=== PATIENT | male | born 1945 | race Caucasian/White ===

== ENCOUNTER 2021-07-24 09:27 | Emergency (ER) | payer MEDICARE, OTHER, SELFPAY ==
[2021-07-24] VITALS (25 sets, daily range): BP systolic 117–164; BP diastolic 70–88; PULSE 78–94; RESP 13–25; O2SAT 92–97
--- NOTE | ~2021-07-24 | CT_ITS ---
EXAMINATION: CT cervical spine wo con DATE: 07/24/2021 11:46 INDICATION: Numbness and tingling in both arms. TECHNIQUE: Computed tomography (CT) of the cervical spine was performed without intravenous contrast. Automated exposure control and iterative reconstruction technique were employed. The dose-length pro duct was 430.96 mGy-cm. COMPARISON: None FINDINGS: There is 11 degrees dextroscoliosis of cervical spine. There is 2 mm anterolisthesis of C3 on C4 and 3 mm anterolisthesis of C4 on C5. There are changes of anterior fusion procedure at C5-C6 w ith interbody bone graft without bridging bone. There are changes of anterior fusion procedure at C6- C7 with healed interbody bone graft. There is mildly decreased disc height at C3-C4 and severely decr eased disc height at C4-C5 and C7-T1. The following disc levels are specifically discussed: C2-C3: There is mild bilateral uncovertebral joint osteoarthritis. There is severe right and moderate left facet joint osteoarthritis. There is mild bilateral neural foraminal stenosis. There is no cent ral canal stenosis. C3-C4: There is a large central extrusion. There is moderate right and severe left uncovertebral join t osteoarthritis. There is severe bilateral facet joint osteoarthritis. There is mild right and moder ate left neural foraminal stenosis. There is severe central canal stenosis. C4-C5: There is a large central extrusion. There is severe bilateral uncovertebral joint osteoarthrit is. There is severe bilateral facet joint osteoarthritis. There is moderate bilateral neural foramina l stenosis. There is severe central canal stenosis. C5-C6: There is severe bilateral uncovertebral joint osteoarthritis. There is mild right and moderate left facet joint osteoarthritis. There is moderate right and mild left neural foraminal stenosis. Th ere is mild central canal stenosis. C6-C7: There is moderate bilateral uncovertebral joint hypertrophy. There is mild bilateral facet brittni nt hypertrophy. There is mild bilateral neural foraminal stenosis. There is no central canal stenosis . C7-T1: There is severe bilateral uncovertebral joint osteoarthritis. There is severe bilateral facet joint osteoarthritis. There is moderate right and mild left neural foraminal stenosis. There is mild central canal stenosis. IMPRESSION: 1. Severe cervical spondylosis. Of note, large extrusions at C3-C4 and C4-C5 causes severe central ca nal stenosis. 2. Anterior fusion procedure at C5-C6 without bridging bone. Healed anterior fusion procedure at C6-C 7. Reviewed, dictated and finalized at location A. [facility]NER IMPRESSION: 1. Severe cervical spondylosis. Of note, large extrusions at C3-C4 and C4-C5 ca uses severe central canal stenosis. 2. Anterior fusion procedure at C5-C6 without bridging bone. Healed anterior fu connie procedure at C6-C7.
--- NOTE | ~2021-07-24 | XR_ITS ---
EXAMINATION: XR chest 1V 07/24/2021 11:47 INDICATION: Acute chest pain PROCEDURE: AP view of the chest COMPARISON: No prior studies for comparison. FINDINGS: The lungs are clear. The cardiomediastinal silhouette is within normal limits. There are no pleural effusions. There is no pneumothorax suspected. IMPRESSION: 1: NO ACUTE CARDIOPULMONARY DISEASE. Reviewed, dictated and finalized at location A. E LAYER
--- NOTE | 2021-07-24 10:15 | ED.EXTPRO ---
HPI - Extremity Problem General Chief complaint: Extremity Problem,Nontraumatic Stated complaint: numbness in extremities Time Seen by Provider: 07/24/21 10:14 Source: patient and family Mode of arrival: ambulatory Limitations: no limitations History of Present Illness HPI Narrative: Patient 75 years old white male came to the ED with his from home complaining of numbness , tingling and weakness of the upper extremities down to the hands mainly left hand Patient started having numbness left hand years ago, few years after having cervical fusion 2002. And gradually getting worse. Patient started having tingling numbness plus some weakness of the right hand, started 2 months ago and gradually going up to the arm and getting worse. Patient also complaining of numbness of the left chest and abdomen started 2 days ago. Patient denies any recent trauma or neck pain. Patient was seen by his family physician 1 week ago and is scheduled for neurological evaluation for carpal tunnel. Patient denies any fever, chills, nausea, vomiting, chest pain, shortness of breath, headache. Patient denies any tingling, numbness or weakness of the lower extremities. patient denies bowel dysfunction, bladder dysfunction, altered sensation, focal lower extremity weakness, or saddle numbness, Related Data Allergies Allergy/AdvReac Type Severity Reaction Status Date / Time Sulfa (Sulfonamide Allergy Unknown Unknown Verified 07/24/21 09:41 Antibiotics) Review of Systems Review of Systems: CONSTITUTIONAL: Denies fever, chills, or sweats. EYES: Denies visual changes, redness, or discharge. ENT: Denies rhinorrhea, congestion, sore throat, or otalgia. CARDIOVASCULAR: Denies chest pain, palpitations, or edema. RESPIRATORY: Denies cough or dyspnea. GASTROINTESTINAL: Denies abdominal pain, nausea, vomiting, or diarrhea. GENITOURINARY: Denies dysuria or hematuria. SKIN: Denies rash or itching. MUSCULOSKELETAL: Denies back pain, joint pain, or myalgia. NEUROLOGIC: Denies headache, numbness, or weakness. PSYCHIATRIC: Denies anxiety or depression. Exam Narrative: General appearance: Well-developed, well-nourished Skin: Normal color Head: Normocephalic, nontraumatic Eyes: Clear conjunctiva ENT: Oropharynx normal, ears normal, nose normal Neck: Supple, nontender Chest and respiratory: Airway patent, no respiratory distress, no accessory muscle use Heart: Regular rate/rhythm Abdomen: Soft, nontender, no organomegaly, quiet bowel sounds Vascular: Normal peripheral pulses, normal capillary refill. Musculoskeletal: Normal range of motion, nontender back Neurologic: Alert and oriented ?3, motor strength is 4 out of 5 of the upper extremity bilaterally. Course Course Emergency Course: Stable Consultations Consultation #1: Dr. Escobedo He is going to order MRI of the cervical spine as outpatient. Date: 07/24/21 Time: 11:24 Consultation #2: DR VELASCO, orthopedic at [facility], is telling me that as long as patient does not have cauda equina symptoms or numbness or weakness of the lower extremity, can come to see her as soon as possible next week, patient to be scheduled for the MRI of the cervical spine. And if I can get MRI in my facility right now would be much better, to not to delay the process of care. I am not able to order MRI in my facility at this time because I was told that the patient does not have acute condition at this time and MRI would not be appropriate.PER our chief nurse Mahsa. My plan to call Dr. Escobedo to expedite the process of getting MRI as soon as possible before going to see the orthopedic at [facility]. Date: 07/24/21 Time: 12:43 Vital Signs V
--- NOTE | 2021-07-24 11:09 | ECG_ITS ---
Measurements Intervals [place] Rate: 82 P: 42 KS: 174 QRS: 14 QRSD: 105 T: 40 QT: 356 QTc: 416 Interpretive Statements SINUS RHYTHM BASELINE ARTIFACT- I, II, III, AVR, AVL, AVF, V1-V6 NORMAL ECG Electronically Signed On 07-24-2021 12:53:48 [employer] by Stanton Yarbrough D.O.
[2021-07-24 11:35] LABS: Basophils Percent Auto 0.3 % (0.2-1.2); Eosinophils Absolute Auto 0.1 K/mm3 (0-0.3); Eosinophils Percent Auto 0.5 % (0-4.4); Hematocrit 41.2 % (42.0-52.0); Immature Granulocyte Absolute 0.03 K/mm3 (0.00-0.031); Immature Granulocyte Percent A 0.3 % (0-0.5); Lymphocytes Absolute Auto 1.29 K/mm3 (0.9-3.2); Lymphocytes Percent Auto 12.2 % (18.3-44.2); Mean Corpuscular Hemoglobin 33.1 pg (26-34); Mean Corpuscular Volume 97.4 fl (80-100); Mean Platelet Volume 9.3 fl (7.4-10.4); Monocytes Absolute Auto 0.5 K/mm3 (0.1-0.6); Monocytes Percent Auto 4.7 % (2.6-8.5); Neutrophils Absolute Auto 8.7 K/mm3 (1.3-6.7); Platelet Count Result 241 k/mm3 (150-375); Red Blood Count 4.23 M/mm3 (4.6-6.20); Red Cell Distribution Width 13.2 % (11.5-14.5); White Blood Count 10.6 K/mm3 (4.5-10.0)
[2021-07-24] MEDS: ASPIRIN 81 MG CHEWABLE TABLET 324 MG PO (11:48)
[2021-07-24 11:50] LABS: Alanine Aminotransferase 22 U/L (4-50); Albumin Level 4.6 g/dL (3.5-5.1); Alkaline Phosphatase 64 U/L (38-126); Anion Gap 9 mmol/L (8-16); Aspartate Amino Transferase 30 U/L (17-59); Bilirubin,Total 1.2 mg/dL (0.2-1.3); Blood Urea Nitrogen 13 mg/dL (9-20); Carbon Dioxide 26 mmol/L (22-30); Chloride 103 mmol/L (98-107); Estimated CRCL calculation 83 ml/min; Estimated Glomerular Filt Rate > 60; Glucose 110 mg/dL (65-110); Lipase 70 U/L (23-300); Potassium 4.2 mmol/L (3.4-5.0); Sodium 138 mmol/L (137-145)
[2021-07-24 12:02] LABS: Troponin I < 0.012 ng/mL (0.000-0.034)
--- NOTE | 2021-07-24 12:23 | PC.NURSE ---
pt images pushed to slu
== END 2021-07-24 13:20 | disposition home or self-care (01) ==
PROVIDERS: Emergency Provider Emergency Medicine; PCP Family Medicine Adolescent Medicine
DX: M47.22 Other spondylosis with radiculopathy, cervical region (principal); M48.02 Spinal stenosis, cervical region; Z98.1 Arthrodesis status
CPT/HCPCS: 36415; 71045; 72125; 80053; 83690; 84484; 85025; 93005; 99284; A9270

== ENCOUNTER 2021-07-25 07:59 | Outpatient (CLI) | payer MEDICARE, OTHER, SELFPAY ==
--- NOTE | ~2021-07-25 | MR_ITS ---
EXAMINATION: MR cervical spine wo con DATE: 07/25/2021 09:08 INDICATION: Numbness and weakness. TECHNIQUE: Magnetic resonance imaging (MRI) of the cervical spine was performed without intravenous c ontrast. Sequences included sagittal T2-weighted FSE, sagittal STIR FSE, sagittal T1-weighted FSE, ax ial MERGE, and axial T2-weighted FSE. COMPARISON: CT cervical spine 07/24/2021 FINDINGS: There is 7 degrees dextrocurvature of cervical spine. There is 2 mm anterolisthesis of C4 o n C5. There are changes of anterior fusion procedures from C5 to C7 with interbody bone graft. There is solid bony fusion at C6-C7, but not at C5-C6. There is severely decreased disc height at C4-C5 and C7-T1. There is increased T2-weighted signal intensity in the spinal cord at C3-C4 and C4-C5. The fo llowing disc levels are specifically discussed: C2-C3: The disc does not extend beyond the endplate margin. There is no uncovertebral joint osteoarth ritis. There is severe bilateral facet joint osteoarthritis. There is mild bilateral neural foraminal stenosis. There is no central canal stenosis. C3-C4: There is a large central extrusion. There is moderate right and severe left uncovertebral join t osteoarthritis. There is severe bilateral facet joint osteoarthritis. There is mild right and moder ate left neural foraminal stenosis. There is severe central canal stenosis with ventral and dorsal in dentation of the spinal cord. C4-C5: There is a central extrusion. There is severe bilateral uncovertebral joint osteoarthritis. Th ere is severe bilateral facet joint osteoarthritis. There is moderate bilateral neural foraminal sten osis. There is severe central canal stenosis with ventral and dorsal indentation of the spinal cord. C5-C6: There is severe bilateral uncovertebral joint hypertrophy. There is mild right and moderate le ft facet joint osteoarthritis. There is moderate right and mild left neural foraminal stenosis. There is no central canal stenosis. C6-C7: There is severe bilateral uncovertebral joint hypertrophy. There is mild bilateral facet joint osteoarthritis. There is mild bilateral neural foraminal stenosis. There is no central canal stenosi s. C7-T1: The disc is bulging. There is severe bilateral uncovertebral joint osteoarthritis. There is se bill bilateral facet joint osteoarthritis. There is moderate right and mild left neural foraminal jake nosis. There is mild central canal stenosis. IMPRESSION: 1. 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 2. Severe cervical spondylosis. 3. Anterior fusion procedure at C5-C6 without bridging bone. Anterior fusion procedure at C6-C7 with healed interbody bone. Reviewed, dictated and finalized at location A. [employer] IMPRESSION: 1. 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 2. Severe cervical spondylosis. 3. Anterior fusion procedure at C5-C6 without bridging bone. Anterior fusion pr ocedure at C6-C7 with healed interbody bone.
== END 2021-07-25 08:00 | disposition home or self-care (01) ==
PROVIDERS: PCP Family Medicine Adolescent Medicine; Visit Provider Family Medicine Adolescent Medicine
DX: M47.813 Spondylosis without myelopathy or radiculopathy, cervicothoracic region (principal); R20.0 Anesthesia of skin; R53.1 Weakness; M48.03 Spinal stenosis, cervicothoracic region; Z98.1 Arthrodesis status; G95.89 Other specified diseases of spinal cord
CPT/HCPCS: 72141

== ENCOUNTER 2021-09-18 08:41 | Outpatient (CLI) | payer MEDICARE, OTHER, SELFPAY ==
--- NOTE | 2021-09-18 11:00 | NEURO_ITS ---
Impression: # Complains of numbness in hands. Status post cervical fusion. # Bilateral moderate Carpal Tunnel Syndrome. # No ulnar neuropathy. # Needle/EMG exam not requested. Nerve Conduction Studies Anti Sensory Summary Table Stim Site NR Peak (ms) P-T Amp (?V) Site1 Site2 Delta-P (ms) Dist (cm) Prabhakar (m/s) Left Median Anti Sensory (2-3nd Digit) Wrist 5.4 15.2 Wrist 2-3nd Digit 5.4 14.0 26 Wrist 5.4 9.4 Wrist 2-3nd Digit 5.4 14.0 26 Right Median Anti Sensory (2-3nd Digit) Wrist 4.1 11.9 Wrist 2-3nd Digit 4.1 14.0 34 Wrist 4.2 5.5 Wrist 2-3nd Digit 4.1 14.0 34 Left Radial Anti Sensory (Base 1st Digit) Wrist 2.5 31.7 Wrist Base 1st Digit 2.5 0.0 Right Radial Anti Sensory (Base 1st Digit) Wrist 2.7 10.0 Wrist Base 1st Digit 2.7 0.0 Left Ulnar Anti Sensory (5th Digit) Wrist 3.2 18.4 Wrist 5th Digit 3.2 14.0 44 Right Ulnar Anti Sensory (5th Digit) Wrist 3.1 20.0 Wrist 5th Digit 3.1 14.0 45 Motor Summary Table Stim Site NR Onset (ms) O-P Amp (mV) Site1 Site2 Delta-0 (ms) Dist (cm) Prabhakar (m/s) Left Median Motor (Abd Poll Brev) Wrist 6.2 1.0 Elbow Wrist 5.9 30.0 51 Elbow 12.1 1.2 Right Median Motor (Abd Poll Brev) Wrist 6.6 0.8 Elbow Wrist 6.3 28.0 44 Elbow 12.9 0.9 Left Ulnar Motor (Abd Dig Minimi) Wrist 2.8 3.5 A Elbow Wrist 6.0 31.0 52 A Elbow 8.8 3.5 Right Ulnar Motor (Abd Dig Minimi) Wrist 3.1 6.3 A Elbow Wrist 6.3 32.0 51 A Elbow 9.4 4.9 F Wave Studies NR F-Lat (ms) L-R F-Lat (ms) Left Median (Mrkrs) (Abd Poll Brev) 33.05 0.41 Right Median (Mrkrs) (Abd Poll Brev) 33.46 0.41 Left Ulnar (Mrkrs) (Abd Dig Min) 30.79 0.99 Right Ulnar (Mrkrs) (Abd Dig Min) 29.80 0.99 MTDD
== END 2021-09-18 08:42 | disposition home or self-care (01) ==
PROVIDERS: PCP Family Medicine Adolescent Medicine; Visit Provider Family Medicine Adolescent Medicine
DX: R20.0 Anesthesia of skin (principal); R53.1 Weakness; G56.03 Carpal tunnel syndrome, bilateral upper limbs
CPT/HCPCS: 95911

== ENCOUNTER 2021-11-09 02:09 | Day surgery (SDC) | payer MEDICARE, OTHER, SELFPAY ==
[2021-10-30 13:01] VITALS: BMI 28.3
--- NOTE | 2021-11-02 10:21 | PC.NURSE ---
Report to the Outpatient Waiting Room, entrance under the green pavilion located off [facility], at time _1045 on date __11/09/21 . OR Time: __1245 . - You and your visitor will be asked a series of questions to screen for COVID 19 for your protection. - A mask is required within the hospital. Preoperative COVID Testing Requirements: No COVID Test needed if: (proof is required; if not received patient will have Rapid Test prior to entry) - Patient has received COVID Vaccine at least 14 days prior to procedure date or - Patient has positive COVID test result within last 90 days of surgery date. COVID Test needed if above criteria is not met If not COVID vaccinated a COVID test must be conducted within 72 hours of surgery and patient is asked to isolate self from time of testing until procedure. You will go to the [facility] for your COVID testing. The [facility] site is located at the corner of [address] [facility]. You will only be called if COVID results are positive and your surgeon may reschedule your elective surgery date. Patients may have clear liquids (water, carbonated beverages, clear teas, apple juice) until 3 hours prior to surgery with a maximum of 20 ounces. - No food from midnight until time of surgery - Infants may have breast milk until 4 hours before surgery, formula 6 hours prior to surgery. - Children will be allowed to drink immediately following surgery. If applicable, please bring a bottle or sippy cup to assist with drinking. Juice, water, soda, and popsicles are readily available. For infants on formula, please bring formula the day of surgery. Pacifiers are allowed. Take the following medications with a SIP of water the morning of surgery: ___NONE Medications to discontinue per physician ___ALL VITAMINS 3 DAYS PRE OP Date to take last dose 11/05/21 Please no make-up, nail russian, hairspray, perfume, deodorant, or body powder the day of surgery. No jewelry (including any body piercings) or valuables the day of surgery, leave them at home. Please take a shower or bath the night before, or the morning of, surgery with an antibacterial soap. Wear comfortable, loose fitting clothing. Children are encouraged to wear pajamas. - Jewelry must be removed prior to entering the operating room. Rings and piercings that are not removed may be cut off. - The hospital will not accept responsibility for valuables. - Please leave all valuables, including medications, at home the day of surgery. If you are going home after surgery, a licensed fast food delivery driver must drive you home. - NO public transportation without another adult. - We recommend that an adult stay with you for 24 hours following discharge. - We also recommend that you do not drive, make important decision, drink alcoholic beverages, or take any drugs that were not prescribed by your health care provider for at least 24 hours after your discharge time. For Pediatric surgeries, we recommend two adults accompany the child home (only one inside the building at this time). One visitor will be allowed to accompany the patient into the hospital. Patients visitor will be instructed to remain with patient at all times or leave the building. We will allow the visitor to come back to the postoperative area when patient is ready. Follow any additional instructions given to you from your surgeon. Telephone instructions given to __PATIENT and asked if any additional questions and then verbalized understanding. Patient advised to call surgeon office or pre surgery nurse liaison [phone] if any additional questions.
--- NOTE | 2021-11-09 07:13 | WPDHPUPDATE1 ---
History and Physical Update Update Date/Time: 11/09/21 07:13 History and Physical has been reviewed, including an updated exam of the patient. There are NO changes in the patient's condition. Risks, benefits, and alternatives have been discussed and questions answered. Patient agrees to proceed with procedure.
--- NOTE | 2021-11-09 07:14 | WPDHPUPDATE1 ---
History and Physical Update Update Date/Time: 11/09/21 07:14 History and Physical has been reviewed, including an updated exam of the patient. There are NO changes in the patient's condition. Risks, benefits, and alternatives have been discussed and questions answered. Patient agrees to proceed with procedure.
[2021-11-09 07:22] VITALS: BP 139/74; PULSE 90; RESP 18; TEMP 36.3; O2SAT 98
--- NOTE | 2021-11-09 07:43 | WPDANESEPPF ---
Anes - Initial Pre Proc Eval Procedure: Operation Date: 11/09/21 09:15 Proposed Procedures p Right Open Carpal Tunnel Release - Dustin Proctor MD s Right Ulnar Neuroplasty - Dustin Proctor MD Date/Time: 11/09/21 07:43 Surgeon: Dustin Proctor MD Pre Op Diagnosis: right carpal & cubital tunnel syndrome Patient Data Age: 76 Gender: M Height: 1.8 m Weight: 89.6 kg Allergies Allergy/AdvReac Type Severity Reaction Status Date / Time Sulfa (Sulfonamide Allergy Unknown Unknown Verified 10/30/21 12:44 Antibiotics) Home Medications Medication Instructions Recorded Confirmed Type cholecalciferol (vitamin D3) 25 mcg PO HS 10/30/21 10/30/21 History lisinopril 40 mg PO HS 10/30/21 10/30/21 History multivit with [id number] [One 1 tablet PO DAILY 10/30/21 10/30/21 History Daily For Men] pravastatin 20 mg PO HS 10/30/21 10/30/21 History Patient hx anesthesia problems: none Family hx anesthesia problems: none Results Review: All pre-operative results and documents have been reviewed as part of the pre-operative evaluation. [facility] Past Medical History Medical History (Updated 11/09/21 @ 07:44 by Mark Andrea MD) HTN (hypertension) Hyperlipidemia Overweight Surgical History Surgical History (Updated 11/09/21 @ 07:45 by Mark Andrea MD) H/O arthroscopic knee surgery H/O cervical spine surgery Social History Social History Smoking packs per day: 1 Smoking cigarettes per day: 20.0 Years smoked: 30 Smoking pack-years: 30.00 Smoking status: Former smoker Tobacco type: cigarettes Smoking end date: 08/05/02 Living arrangements: with family Spiritual care concerns: No Anes - Eval Final PreProcedure Day of Procedure 11/09/21 07:43 Patient weight: overweight Heart: regular rate and rhythm Lungs: clear to auscultation Airway: Mallampati scale Neurological: alert and oriented Last oral intake: >/= 8 hours ASA classification: III Emergent: no Anesthetic plan: proceed Anesthesia type and monitoring: general GIVS and standard monitoring Results Review: All pre-operative results and documents have been reviewed as part of the pre-operative evaluation. Informed Consent: The patient's anesthetic plan and its attendant risks and benefits were discussed with the patient/family/POA. Questions were solicited and answers provided to the satisfaction of the patient/family/POA.
[2021-11-09] MEDS: LACTATED RINGERS 1,000 ML 30 ML IV CONT ×2 (07:47→09:44)
[2021-11-09] MEDS: LIDO 1%/EPINEPHRINE 1:100,000 50 ML VIAL 30 ML INFILTRATE (09:33)
[2021-11-09 09:44] VITALS: BP 111/69; PULSE 85; RESP 15; O2SAT 94
--- NOTE | 2021-11-09 09:54 | P.OP_ITS ---
Procedure Note - Detailed Date of Procedure 11/09/21 Pre-op Diagnosis right carpal & cubital tunnel syndrome Post-op Diagnosis Same Procedure Performed Right open carpal tunnel release and right ulnar neuroplasty at the elbow Surgeon Dustin Proctor MD [employer] [facility] Description of Procedure The right carpal tunnel and cubital tunnel areas were marked on the patient holding area. He was taken to the operating room placed supine the operating table. He was given IV sedation and the right upper extremity was prepped draped usual fashion. A time-out was held confirmed. Extremity was exsanguinated with an Mario wrap tourniquet inflated 250 mmHg. The 2 operative sites were infiltrated with 1% lidocaine with epinephrine. The incision in the palm was made 1st with a incision as marked. Blunt dissection revealed the palmar aponeurosis. That and the transverse carpal ligament were incised with a 15. Blade. Under 3 point retraction the canal was opened distally and proximally for complete release. There was no unusual anatomy noted. The skin was closed with interrupted 4-0 nylon suture. Attention was turned to the right cubital tunnel area elbow was flexed and supported on folded towels. The incision was made as marked and dissection was carried through the subcutaneous tissue to the medial epicondyle. The ulnar nerve was identified just proximal and distal to that. The fascia was opened over that and it was carefully dissected distally under Lane's ligament which was divided and into the of flexor muscle mass. The area of most compression. Be at or distal to Lane's ligament in her seemed compress there as it entered the flexor muscles under the fascia. The nerve was released throughout at least an 8 cm area it did not sublux. Bleeding points were electrocoagulated. The wound was closed with multiple intradermal 4-0 Monocryl sutures and glue. A bulky bandage was applied at both sites the tourniquet was released and he was discharged from the operating room stable condition. He has a prescription for hydrocodone 5/325 7. Estimated Blood Loss 3 Drains No Packing No Pathology None sent Complications No immediate complications Condition Stable Disposition Same day
[2021-11-09 10:14] VITALS: BP 114/71; PULSE 74; RESP 15
[2021-11-09 10:44] VITALS: BP 118/69; PULSE 65; RESP 15
== END 2021-11-09 11:00 | disposition home or self-care (01) ==
PROVIDERS: PCP Family Medicine Adolescent Medicine; Visit Provider Plastic Surgery
PROC: (CPT 64721; principal; 2021-11-09 09:15)
PROC: (CPT 64721; 2021-11-09 09:15)
DX: G56.01 Carpal tunnel syndrome, right upper limb (principal); G56.21 Lesion of ulnar nerve, right upper limb; I10 Essential (primary) hypertension; E78.5 Hyperlipidemia, unspecified; Z87.891 Personal history of nicotine dependence
CPT/HCPCS: 64721; 64718; A9270; J2405; J2704; J3010; J7120

== ENCOUNTER 2021-11-30 02:20 | Day surgery (SDC) | payer MEDICARE, OTHER, SELFPAY ==
[2021-11-24 15:15] VITALS: BMI 27.8
--- NOTE | 2021-11-24 15:19 | PC.NURSE ---
Report to the Outpatient Waiting Room, entrance under the green pavilion located off [facility], at time 1100 on date ____11/30/21___. OR Time: ___1300 . - You and your visitor will be asked a series of questions to screen for COVID 19 for your protection. - A mask is required within the hospital. Preoperative COVID Testing Requirements: No COVID Test needed if: (proof is required; if not received patient will have Rapid Test prior to entry) - Patient has received COVID Vaccine at least 14 days prior to procedure date or - Patient has positive COVID test result within last 90 days of surgery date. COVID Test needed if above criteria is not met If not COVID vaccinated a COVID test must be conducted within 72 hours of surgery and patient is asked to isolate self from time of testing until procedure. You will go to the [facility] for your COVID testing. The [facility] is located at the corner of [address] [facility]. You will only be called if COVID results are positive and your surgeon may reschedule your elective surgery date. Patients may have clear liquids (water, carbonated beverages, clear teas, apple juice) until 3 hours prior to surgery with a maximum of 20 ounces. - No food from midnight until time of surgery - Infants may have breast milk until 4 hours before surgery, formula 6 hours prior to surgery. - Children will be allowed to drink immediately following surgery. If applicable, please bring a bottle or sippy cup to assist with drinking. Juice, water, soda, and popsicles are readily available. For infants on formula, please bring formula the day of surgery. Pacifiers are allowed. Take the following medications with a SIP of water the morning of surgery: ____NONE Medications to discontinue per physician _ALL VITAMINS AND SUPPLEMENTS 3 DAYS PRE OP Date to take last dose___11/26/21 Please no make-up, nail romanian, hairspray, perfume, deodorant, or body powder the day of surgery. No jewelry (including any body piercings) or valuables the day of surgery, leave them at home. Please take a shower or bath the night before, or the morning of, surgery with an antibacterial soap. Wear comfortable, loose fitting clothing. Children are encouraged to wear pajamas. - Jewelry must be removed prior to entering the operating room. Rings and piercings that are not removed may be cut off. - The hospital will not accept responsibility for valuables. - Please leave all valuables, including medications, at home the day of surgery. If you are going home after surgery, a licensed escort car driver must drive you home. - NO public transportation without another adult. - We recommend that an adult stay with you for 24 hours following discharge. - We also recommend that you do not drive, make important decision, drink alcoholic beverages, or take any drugs that were not prescribed by your health care provider for at least 24 hours after your discharge time. For Pediatric surgeries, we recommend two adults accompany the child home (only one inside the building at this time). One visitor will be allowed to accompany the patient into the hospital. Patients visitor will be instructed to remain with patient at all times or leave the building. We will allow the visitor to come back to the postoperative area when patient is ready. Follow any additional instructions given to you from your surgeon. Telephone instructions given to ____PATIENT and asked if any additional questions and then verbalized understanding. Patient advised to call surgeon office or pre surgery nurse liaison [phone] if any additional questions.
--- NOTE | 2021-11-29 08:37 | WPDANESEPPF ---
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 <Srinath Jain MD - Last Filed: 11/30/21 13:52> Patient Data Age: 76 Gender: M Height: 1.8 m Weight: 90.75 kg <Srinath Jain MD - Last Filed: 11/30/21 13:52> Allergies Allergy/AdvReac Type Severity Reaction Status Date / Time Sulfa (Sulfonamide Allergy Unknown Unknown Verified 11/30/21 08:07 Antibiotics) <Srinath Jain MD - Last Filed: 11/30/21 13:52> Home Medications Medication Instructions Recorded Confirmed Type One Daily For Men 1 tablet PO DAILY 10/30/21 11/30/21 History cholecalciferol (vitamin D3) 25 mcg PO HS 10/30/21 11/30/21 History lisinopril 40 mg PO HS 10/30/21 11/30/21 History pravastatin 20 mg PO HS 10/30/21 11/30/21 History hydrocodone-acetaminophen 1 tablet PO Q6H PRN #7 tablet MDD 6 11/30/21 Rx <Srinath Jain MD - Last Filed: 11/30/21 13:52> Patient hx anesthesia problems: none <Jim Babcock DO - Last Filed: 11/30/21 10:17> Family hx anesthesia problems: none <Jim Babcock DO - Last Filed: 11/30/21 10:17> Results Review: All pre-operative results and documents have been reviewed as part of the pre-operative evaluation. <Srinath Jain MD - Last Filed: 11/30/21 13:52> [facility] Past Medical History Medical History: Medical History (Updated 11/09/21 @ 07:44 by Mark Andrea MD) HTN (hypertension) Hyperlipidemia Overweight <Srinath Jain MD - Last Filed: 11/30/21 13:52> Surgical History Surgical History: Surgical History (Updated 11/09/21 @ 07:45 by Mark Andrea MD) H/O arthroscopic knee surgery H/O cervical spine surgery <Srinath Jain MD - Last Filed: 11/30/21 13:52> Social History Social History: Social History Smoking packs per day: 1 Smoking cigarettes per day: 20.0 Years smoked: 30 Smoking pack-years: 30.00 Smoking status: Former smoker Tobacco type: cigarettes Smoking end date: 08/05/02 Living arrangements: with family Spiritual care concerns: No <Srinath Jain MD - Last Filed: 11/30/21 13:52> Anes - Eval Final PreProcedure Day of Procedure 11/29/21 08:37 <Srinath Jain MD - Last Filed: 11/30/21 13:52> Patient weight: overweight <Srinath Jain MD - Last Filed: 11/30/21 13:52> Heart: regular rate and rhythm <Srinath Jain MD - Last Filed: 11/30/21 13:52> Lungs: clear to auscultation and normal air movement <Srinath Jain MD - Last Filed: 11/30/21 13:52> Airway: Mallampati scale class II <Srinath Jain MD - Last Filed: 11/30/21 13:52> Neurological: alert and oriented <Srinath Jain MD - Last Filed: 11/30/21 13:52> Last oral intake: >/= 8 hours <Srinath Jain MD - Last Filed: 11/30/21 13:52> ASA classification: III <Srinath Jain MD - Last Filed: 11/30/21 13:52> Emergent: no <Srinath Jain MD - Last Filed: 11/30/21 13:52> Anesthetic plan: proceed <Srinath Jain MD - Last Filed: 11/30/21 13:52> Anesthesia type and monitoring: general LMA <Srinath Jain MD - Last Filed: 11/30/21 13:52> Results Review: All pre-operative results and documents have been reviewed as part of the pre-operative evaluation. <Srinath Jain MD - Last Filed: 11/30/21 13:52> Informed Consent: The patient's anesthetic plan and its attendant risks and benefits were discussed with the p
--- NOTE | 2021-11-30 07:54 | WPDHPUPDATE1 ---
History and Physical Update Update Date/Time: 11/30/21 07:54 History and Physical has been reviewed, including an updated exam of the patient. There are NO changes in the patient's condition. Risks, benefits, and alternatives have been discussed and questions answered. Patient agrees to proceed with procedure.
[2021-11-30 08:44] VITALS: BP 124/73; PULSE 87; RESP 16; TEMP 36.8; O2SAT 96
[2021-11-30] MEDS: LACTATED RINGERS 1,000 ML 30 ML IV CONT (08:44)
[2021-11-30] MEDS: LIDO 1%/EPINEPHRINE 1:100,000 50 ML VIAL 10 ML INFILTRATE (11:35)
[2021-11-30] MEDS: BACITRACIN OINTMENT 15 GM TUBE 1 APPLIC TOPICAL (11:36)
[2021-11-30 12:08] VITALS: BP 113/58; PULSE 85; RESP 16; O2SAT 97
[2021-11-30 12:35] VITALS: BP 109/61; PULSE 76; RESP 16; O2SAT 97
--- NOTE | 2021-11-30 12:38 | P.OP_ITS ---
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 He was taken to the operating room and placed supine on the operating table he was given IV sedation. The left upper extremity was prepped and draped in usual fashion. The 2 sites were carefully marked and locally infiltrated with 1% lidocaine with epinephrine. The extremity was exsanguinated with an Mario wrap and the tourniquet inflated to 250 mmHg. The incision was made 1st in the palm dissecting bluntly through the subcutaneous tissue to the palmar aponeurosis. This and the carpal retinaculum were incised with a 15. Blade opening canal. Under 3 point retraction the ligament was divided distally and proximally to completely release it. There was no unusual anatomy noted. The skin was closed with interrupted 4-0 nylon suture. The arm was flexed and supported on folded towels and the incision made at the elbow. Dissection through the subcutaneous tissue revealed some moderate tric eps muscle just posterior to the nerve the nerve was easily accessed proximal to the medial epicondyle. The nerve was tracked distally passing under Lane's ligament and dividing all compressing tissue. The nerve appeared the most compressed on the distal margin of the Lane's ligament and at this site were the flexor muscle fascia began. I was able to pass a small finger alongside the nerve distally and proximally indicated no need for additional surgery. Bleeding points in the skin were electrocoagulated. The skin was closed with intradermal 3-0 Monocryl sutures and glue the usual bandages were applied and he was discharged from the operating room the tourniquet was released at that time he is being discharged home with prescription for hydrocodone 5/325 7. Drains No Packing No Pathology None sent Complications No immediate complications Condition Stable Disposition Same day
[2021-11-30 13:05] VITALS: BP 110/63; PULSE 73; RESP 16
== END 2021-11-30 13:31 | disposition home or self-care (01) ==
PROVIDERS: PCP Family Medicine Adolescent Medicine; Visit Provider Plastic Surgery
PROC: (CPT 64721; principal; 2021-11-30 11:00)
PROC: (CPT 64721; 2021-11-30 11:00)
DX: G56.02 Carpal tunnel syndrome, left upper limb (principal); G56.22 Lesion of ulnar nerve, left upper limb; I10 Essential (primary) hypertension; E78.5 Hyperlipidemia, unspecified; Z87.891 Personal history of nicotine dependence
CPT/HCPCS: 64721; 64718; A9270; J2250; J2704; J7120

== ENCOUNTER 2022-07-23 11:40 | Emergency (ER) | payer MEDICARE, SELFPAY ==
--- NOTE | ~2022-07-23 | XR_ITS ---
Left third digit Technique: PA, oblique, and lateral views were obtained. Clinical History: Laceration, injury with a saw Findings: Comminuted, traumatic, displaced fracture the distal aspect of the third distal phalanx pre sent. There is overlying soft tissue laceration. Remaining osseous structures are intact. Joint space s are preserved. Soft tissues are unremarkable. Impression: Comminuted, mildly displaced fractures of the distal aspect of the third distal phalanx, with overlyi ng soft tissue laceration. Reviewed, dictated and finalized at location [] RPTION PLANT OPERATOR HELPER Impression: Comminuted, mildly displaced fractures of the distal aspect of the third distal phalanx, with overlying soft tissue laceration.
[2022-07-23 11:46] VITALS: BP 132/67; PULSE 104; RESP 16; TEMP 37.5; O2SAT 98
[2022-07-23] MEDS: TETANUS,DIPHTHERIA,AC PERTUSSIS ADULT (0.5 ML) BOOSTRIX IM (12:41)
--- NOTE | 2022-07-23 12:52 | ED.UPPEXIN ---
HPI - Extremity Injury (Upper) General Chief Complaint: Extremity Injury, Upper Stated Complaint: cut on left middle finger Time Seen by Provider: 07/23/22 12:19 Source: patient and RN notes reviewed Mode of arrival: ambulatory Limitations: no limitations History of Present Illness HPI narrative: This is a 76 year old male right hand dominant who presents for evaluation of left 3rd finger injury. He states prior to arrival today his left 3rd finger accidentally got caught in log splinter. He is been unable to stop the bleeding. He reports mild pain of 3/10. He has not taken anything for pain and he does not want any medication. He is unsure of his last tetanus vaccination. Related Data Home Medications Medication Instructions Recorded Confirmed cholecalciferol (vitamin D3) 25 25 mcg PO HS 10/30/21 03/15/22 mcg (1,000 unit) tablet lisinopril 40 mg tablet 40 mg PO HS 10/30/21 03/15/22 multivit with minerals-folic 1 tablet PO DAILY 10/30/21 03/15/22 acid-lycopene 0.4 mg-600 mcg tablet (One Daily For Men) pravastatin 20 mg tablet 20 mg PO HS 10/30/21 03/15/22 Allergies Allergy/AdvReac Type Severity Reaction Status Date / Time Sulfa (Sulfonamide Allergy Unknown Unknown Verified 07/23/22 12:10 Antibiotics) Review of Systems Constitutional: Constitutional: Denies chills, Denies fatigue and Denies fever(s) [facility] Past Medical History Medical History HTN (hypertension) Hyperlipidemia Overweight Surgical History Surgical History H/O arthroscopic knee surgery H/O cervical spine surgery (07/2021) C3-5 fusion 07/25 H/O elbow surgery History of carpal tunnel surgery of left wrist History of carpal tunnel surgery of right wrist Family History Family History (Updated 03/27/22 @ 14:55 by Miguel Francois MA) Sibling Acute myocardial infarction Father Colon cancer Mother Alzheimer disease Other Hypertension Social History Social History Smoking packs per day: 1 Smoking cigarettes per day: 20.0 Years smoked: 30 Smoking pack-years: 30.00 Smoking status: Former smoker Tobacco type: cigarettes Smoking end date: 08/05/02 Alcohol intake: never Substance use: never Substance use type: does not use Gender identity (if verbalized by the patient): Male Spiritual care concerns: No Agree to blood products: Yes Exam Const: General: healthy appearing, no acute distress and alert Nutritional Appearance: well nourished Orientation/consciousness: patient oriented x3 Limitations: no limitations HENMT: Head: normal to inspection Face and sinus: normal facial exam Eyes: EOM: EOMs intact bilaterally Chest: Chest palpation & inspection: normal inspection of the chest Resp: Effort & Inspection: normal respiratory effort Skin: Other: left 3rd finger Neuro: General: moves all extremities and CN's II-XI intact bilaterally Cranial nerves: Yes Nystagmus not present Speech: normal speech Gait exam (Neuro): Normal gait present Extrem: Other: left hand 3 rd distal finger with laceration going through base of nail bed and nail is sticking up out of skin. Laceration 1.5 cm from dorsum to radial side. He also has 2 lacerations on finger pad. He is able to flex and extend at PIP and DIP. sensation in tact Psych: Mental Status: mental status grossly normal Affect: normal affect Attitude: cooperative Course Reevaluation(s) Reevaluation #1: I have discussed with patient about wound care and follow up . I discussed that he will lose his nail and it is unclear if it will re grow. I also discussed that he may have some skin that may not get get perfusion due to laceration area and that is why he will need to follow up . He may need revision. He understands. I also discussed possible infection and need to take antibi
== END 2022-07-23 14:45 | disposition home or self-care (01) ==
PROVIDERS: Emergency Provider General Practice; PCP Family Medicine Adolescent Medicine
DX: S62.633B Displaced fracture of distal phalanx of left middle finger, initial encounter for open fracture (principal); Z23 Encounter for immunization; I10 Essential (primary) hypertension; E78.5 Hyperlipidemia, unspecified; E66.3 Overweight; Z68.28 Body mass index [BMI] 28.0-28.9, adult; Z98.1 Arthrodesis status; Z87.891 Personal history of nicotine dependence; W31.89XA Contact with other specified machinery, initial encounter
CPT/HCPCS: 12001; 29130; 73140; 90471; 90715; 99284

== ENCOUNTER → 2022-07-27 09:37 | Outpatient (CLI) | payer MEDICARE, SELFPAY ==
--- NOTE | ~2022-07-27 | XR_ITS ---
EXAMINATION: XR finger 3rd LT min 2V DATE: 07/27/2022 10:00 INDICATION: Postreduction open fracture of the left third distal phalanx TECHNIQUE: Dorsal palmar and lateral views of the left third digit were obtained COMPARISON: None FINDINGS: Attempted reduction and external splinting of a comminuted fractures at the tuft of the left third di stal phalanx. The fragments which were previously displaced palmar by a couple millimeter are nondisp laced dorsally by 2 mm with 5-10 degrees dorsal angulation. No other fractures identified. 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 IMPRESSION: 1. 2 mm dorsal displacement and mild dorsal angulation of a comminuted fracture of the tuft of the le ft third distal phalanx. Reviewed, dictated and finalized at location B. BUTTON SPLITTER IMPRESSION: 1. 2 mm dorsal displacement and mild dorsal angulation of a comminuted fracture of the tuft of the left third distal phalanx.
== END ==
PROVIDERS: PCP Family Medicine Adolescent Medicine; Visit Provider Plastic Surgery
DX: S62.633A Displaced fracture of distal phalanx of left middle finger, initial encounter for closed fracture (principal)
CPT/HCPCS: 73140

== ENCOUNTER 2022-08-02 00:44 | Day surgery (SDC) | payer MEDICARE, SELFPAY ==
--- NOTE | 2022-08-01 09:21 | PC.NURSE ---
Report to the Outpatient Waiting Room, entrance under the green pavilion located off [address], at time __1100 on date ___08/02/22____. Planned Procedure Time: _1200 . Time changes happen often and if your time is changed the preop area will call you the afternoon before. - You and your visitor will be asked to self-screen and do not enter if you have any COVID symptoms. - Only one visitor is requested with a max of two and NO children visitors are allowed at this time. - The patient visitor may be requested to leave or wait in car when not with patient due to distancing restrictions. - A mask is optional within the hospital. LIGHT BREAKFAST MORNING OF SURGERY Patients may have clear liquids (water, carbonated beverages, clear teas, apple juice) until 3 hours prior to surgery with a maximum of 20 ounces. - No food from midnight until time of surgery - Infants may have breast milk until 4 hours before surgery, formula 6 hours prior to surgery. - Children will be allowed to drink immediately following surgery. If applicable, please bring a bottle or sippy cup to assist with drinking. Juice, water, soda, and popsicles are readily available. For infants on formula, please bring formula the day of surgery. Pacifiers are allowed. Take the following medications with a SIP of water the morning of surgery: ALL ROUTINE AM MEDS Medications to discontinue per physician NONE Date to take last dose Please no make-up, nail cameroonian, hairspray, perfume, deodorant, or body powder the day of surgery. No jewelry (including any body piercings) or valuables the day of surgery, leave them at home. Please take a shower or bath the night before, or the morning of, surgery with an antibacterial soap. Wear comfortable, loose fitting clothing. Children are encouraged to wear pajamas. - Jewelry must be removed prior to entering the operating room. Rings and piercings that are not removed may be cut off. - The hospital will not accept responsibility for valuables. - Please leave all valuables, including medications, at home the day of surgery. If you are going home after surgery, a licensed jeep driver must drive you home. - NO public transportation without another adult if you receive anesthesia. - We recommend that an adult stay with you for 24 hours following discharge. - We also recommend that you do not drive, make important decision, drink alcoholic beverages, or take any drugs that were not prescribed by your health care provider for at least 24 hours after your discharge time. Follow any additional instructions given to you from your surgeon. If you or anyone in your household have experienced Covid symptoms in the past week, please notify your surgeon or the nurse liaison at the phone number below for possible testing. Telephone instructions given to __PATIENT and asked if any additional questions and then verbalized understanding. Patient advised to call surgeon office or pre surgery nurse liaison [phone] if any additional questions.
[2022-08-01 09:25] VITALS: BMI 27.8
[2022-08-02] VITALS (9 sets, daily range): BP systolic 114–129; BP diastolic 60–72; PULSE 70–86; RESP 14–16; TEMP 37.4; O2SAT 94–99
--- NOTE | ~2022-08-02 | XR_ITS ---
EXAMINATION: XR surgery orthopedic DATE: 08/02/2022 12:53 INDICATION: Reduction and fixation of a fracture of the left third distal phalanx. TECHNIQUE: 2 fluoroscopic images of the distal aspect the left third digit were obtained during proce dure performed by Dr. Proctor. Radiologist was not present for the imaging or procedure. The amount of fluoroscopy time used during this procedure was 0.9 minutes. COMPARISON: 08/27/2021 FINDINGS: Again seen is a comminuted fracture of the tuft of the left third distal phalanx with reduction to ne ar anatomic alignment of the previously dorsally displaced fracture fragments. There is an axially di rected percutaneous pin fixation across the large central fragment extending across the more proximal aspect of the distal phalanx, the distal interphalangeal joint and through the majority of the lengt h of the middle phalanx. There is either a prominent dorsal osteophyte versus old healed dorsal avuls ion fracture at the base of the third distal phalange. No other acute fractures identified. 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 IMPRESSION: 1. Near-anatomic alignment post reduction percutaneous pin fixation of a comminuted tuft fracture of the left third distal phalanx. Reviewed, dictated and finalized at location A. TY PARLOR CLEANER IMPRESSION: 1. Near-anatomic alignment post reduction percutaneous pin fixation of a commin uted tuft fracture of the left third distal phalanx.
--- NOTE | 2022-08-02 07:11 | WPDHPUPDATE1 ---
History and Physical Update Update Date/Time: 08/02/22 07:11 History and Physical has been reviewed, including an updated exam of the patient. There are NO changes in the patient's condition. Risks, benefits, and alternatives have been discussed and questions answered. Patient agrees to proceed with procedure.
[2022-08-02] MEDS: ACETAMINOPHEN 500 MG TABLET 1000 MG PO (11:09)
[2022-08-02] MEDS: ceFAZolin 2 GM/D5W 50 ML 2 GM/50 ML BAG IVPB (11:46)
[2022-08-02] MEDS: BACITRACIN OINTMENT 15 GM TUBE 1 APPLIC TOPICAL (12:39)
--- NOTE | 2022-08-02 13:28 | P.OP_ITS ---
Procedure Note - Detailed Date of Procedure 08/02/22 Pre-op Diagnosis left 3rd distal phalanx fx Post-op Diagnosis Other Procedure Performed Open comminuted displaced fracture of the shaft left 3rd finger distal phalanx Surgeon Dustin Proctor MD Central Office Inspector Lauri Anesthesia Local Description of Procedure The left 3rd finger was marked on the patient with this consent the holding area. He was then taken to the operating was placed supine operating table. Extremity was prepped and draped usual fashion. Middle digit was anesthetized with 1% lidocaine with epinephrine as an intrathecal block. No tourniquet was utilized. C-arm images were viewed indicating comminuted fracture with d isplacement. Angulation was easily reduced but was unstable is all old blood from this injury the was removed. Several sutures were taken out and the nail plate removed temporarily. Nonviable epithelium was debrided away with scissors. No necrotic dermis was noted. The nail plate was reinserted and fixed with a crisscross 4-0 nylon suture and also a mattress suture at the hyponychium. The reduced fracture was then transfixed percutaneously with a 0.035 in C wire seated in the middle phalanx.. The pin was cut in the subcutaneous tissue between the bone skin surface. That wound was sutured. A soft bulky bandage was applied. The splint was not reapplied. He was discharged from the operating stable condition prescriptions for cephalexin (15) and hydrocodone (7) were sent to his pharmacy. Estimated Blood Loss 2 Tourniquet Time 0 Drains No Packing No Pathology None sent Complications No immediate complications Condition Stable Disposition Same day
== END 2022-08-02 13:43 | disposition home or self-care (01) ==
PROVIDERS: PCP Family Medicine Adolescent Medicine; Visit Provider Plastic Surgery
PROC: (CPT 26765; principal; 2022-08-02 12:00)
DX: S62.633A Displaced fracture of distal phalanx of left middle finger, initial encounter for closed fracture (principal); W31.2XXA Contact with powered woodworking and forming machines, initial encounter; Z98.1 Arthrodesis status
CPT/HCPCS: 26765; 99199; A9270; C1713; J0690

== ENCOUNTER → 2022-09-08 08:34 | Outpatient (CLI) | payer MEDICARE, SELFPAY ==
--- NOTE | ~2022-09-08 | XR_ITS ---
PA, oblique, and lateral views of the left third digit Clinical history: Fracture COMPARISON: 07/27/2022 FINDINGS: Orthopedic pin is present traversing the middle and distal phalanges of the third digit. Co mminuted fracture of the distal portion of the third distal phalanx is again present. No significant callus formation evident at this time. Soft tissues are unremarkable. IMPRESSION: Orthopedic pin traversing the third middle and distal phalanges, transfixing a comminuted fracture of the distal portion of the third distal phalanx. No significant callus formation evident at this time . Osseous alignment is mildly improved from prior exam. Reviewed, dictated and finalized at location M. WORKER IMPRESSION: Orthopedic pin traversing the third middle and distal phalanges, transfixing a comminuted fracture of the distal portion of the third distal phalanx. No signi ficant callus formation evident at this time. Osseous alignment is mildly impro ann from prior exam.
== END ==
PROVIDERS: PCP Family Medicine Adolescent Medicine; Visit Provider Plastic Surgery
DX: S62.633B Displaced fracture of distal phalanx of left middle finger, initial encounter for open fracture (principal); X58.XXXA Exposure to other specified factors, initial encounter
CPT/HCPCS: 73140

== ENCOUNTER → 2022-10-08 09:53 | Outpatient (CLI) | payer MEDICARE, SELFPAY ==
--- NOTE | ~2022-10-08 | XR_ITS ---
XR finger 3rd LT min 2V DATE: 10/08/2022 10:09 INDICATION: Displaced fracture of distal phalanx of the left third digit TECHNIQUE: 4 views COMPARISON: September 08, 2022 left third digit FINDINGS: Again noted is a K wire extending longitudinally through the entire length of the distal ph alanx through the distal interphalangeal joint into the very proximal shaft of the middle phalanx. There is a comminuted fracture of the distal shaft and tuft of the distal phalanx with no significant change in position or alignment since September 08, 2022. Minimal if any new bone formation is evident . IMPRESSION: No significant change since September 08, 2022 Reviewed, dictated and finalized at location B. OARD OPERATOR
== END ==
PROVIDERS: PCP Family Medicine Adolescent Medicine; Visit Provider Plastic Surgery
DX: S62.633D Displaced fracture of distal phalanx of left middle finger, subsequent encounter for fracture with routine healing (principal); X58.XXXD Exposure to other specified factors, subsequent encounter
CPT/HCPCS: 73140